=== PATIENT | female | born 1975 | race Caucasian/White ===

== ENCOUNTER 2017-01-23 23:55 | Inpatient (IN) | payer OTHER ==
[2017-01-24] MEDS ORDERED: DEXTROSE 5%-LACTATED RINGERS 500 ML IV SCH (01:00)
[2017-01-24 01:59] LABS: BASOPHIL 0.7 % (0-2.0); EOSINOPHIL 3.1 % (0-4.5); MCHC 33.4 g/dl (32.0-36.0); MEAN CELL VOLUME 83.6 fl (80-96); MEAN PLT VOLUME 9.5 fl (7.5-11.1); NEUTROPHILS 58.4 % (42.8-82.8); PLATELET COUNT 317 K/MM3 (134-434); RDW 14.3 % (11.6-15.6); WHITE BLOOD COUNT 7.6 K/mm3 (4.0-10.0)
[2017-01-24] MEDS: DEXTROSE 5%-LACTATED RINGERS 1,000 ML IV SCH (02:00)
[2017-01-24 02:13] LABS: INR 1.03 (0.82-1.09); PROTHROMBIN TIME (PATIENT) 11.3 SEC (9.98-11.88)
[2017-01-24 02:15] LABS: ACTIVATED PTT 25.6 SECONDS (26.9-34.4)
[2017-01-24 02:20] LABS: ANION GAP 12 (8-16); CALCIUM 8.7 mg/dL (8.5-10.1); CO2 20 mmol/L (21-32); CREATININE 0.4 mg/dL (0.55-1.02); GLUCOSE,RANDOM 80 mg/dL (74-106)
[2017-01-24] MEDS ORDERED: BUTORPHANOL TARTRATE 1 MG/ML VIAL IVPB ONE ×2 (02:30→12:30)
[2017-01-24] MEDS ORDERED: PROMETHAZINE HCL 25 MG/1 ML VIAL IVPB ONE ×2 (02:30→12:30)
[2017-01-24 02:42] VITALS: BMI 32.4
--- NOTE | 2017-01-24 07:06 | HP ---
Past Medical History - Primary Care Physician PCP:: Bakari Carrera - Admission Chief Complaint: 37,4 weeks, rom , previous c/s , request of History of Present Illness: 41 yo f edc by sono 02/10/17 with previous c/s for breech c/o rom since 1130 pm 01/23/17 , clear fluid, irregular contracrion, cx 1 FT , 50 vx -3 mr, nitazine positve, clear fluid , fhr cat 1, contraction q 4 min, risks of discused , aware of all risks , ulternative c/s discussed , declined History Source: Patient Limitations to Obtaining History: No Limitations - Past Medical History ...: 3 ...Para: 1 ...Term: 1 ...: 0 ...Spon : 1 ...Induced : 0 ...Multiple Gestation: 0 ...LMP: 05/06/16 ... Weeks Gestation by Dates: 37.4 ...EDC by Dates: 02/10/17 ...EDC by Sono: 02/10/17 - Past Surgical History Past Surgical History: Yes: Hx Myomectomy: No Hx Transabdominal Cerclage: No - Smoking History Smoking history: Never smoked Have you smoked in the past 12 months: No - Alcohol/Substance Use Hx Alcohol Use: No - Social History Usual Living Arrangement: Yes: With Spouse History of Recent Travel: No Home Medications - Allergies Allergies/Adverse Reactions: Allergies Allergy/AdvReac Type Severity Reaction Status Date / Time No Known Allergies Allergy Verified 01/24/17 01:24 - Home Medications Home Medications: Ambulatory Orders [id number]/Iron Fumarate/FA/Dss [ 19 Tablet] 1 each PO DAILY 01/24/17 Review of Systems - Review of Systems Constitutional: reports: No Symptoms HENT: reports: No Symptoms Neck: reports: No Symptoms Cardiovascular: reports: No Symptoms Respiratory: reports: No Symptoms Gastrointestinal: reports: No Symptoms Genitourinary: reports: No Symptoms Breasts: reports: No Symptoms Reported Musculoskeletal: reports: No Symptoms Integumentary: reports: No Symptoms Neurological: reports: No Symptoms Endocrine: reports: No Symptoms Hematology/Lymphatic: reports: No Symptoms Physical Exam - Maternity Vital Signs: Vital Signs Temperature 98.1 F 01/24/17 06:00 Pulse Rate 65 01/24/17 06:00 Respiratory Rate 20 01/24/17 06:00 Blood Pressure 105/53 01/24/17 06:00 O2 Sat by Pulse Oximetry (%) Constitutional: Yes: Well Nourished, No Distress, Calm Eyes: Yes: WNL, Conjunctiva Clear, EOM Intact HENT: Yes: WNL, Atraumatic, Normocephalic Neck: Yes: WNL, Supple, Trachea Midline Cardiovascular: Yes: WNL, Regular Rate and Rhythm Breast(s): Yes: WNL - Abdominal Exam/OB Fundal Height: 40 Number of Fetuses: Single Presentation: Vertex Contractions: Yes Regularity: Irregular Intensity: Mod/Strong Monitor Mode: External Heart Rate Location: [facility] Category: I Accelerations: Uniform Decelerations: None - Vaginal Exam/OB Vaginal Bleediing: No Speculum Exam: No Dilatation (cm): i cm Effacement (%): 50 Amniotic Membrane Status: Ruptured (gross lekage of clear fluid) Nitrazine Test: Positive Amniotic Fluid: Yes: Clear Presentation: Vertex/Position Station: -3 - Physical Exam Extremities: Yes: WNL Edema: Yes Edema: LLE: Trace, RLE: Trace Deep Tendon Reflex Grade: Normal +2 Psychiatric: Yes: Alert - Labs Lab Results: CBC, BMP 01/24/17 01:00 01/24/17 01:00 Hemorrhage Risk Assessment - Risk Factors Medium Risk Factors: Yes: Prior , uterine surgery,or multiple laparotomies Risk Score: 1 Risk Level: Medium Risk Problem List - Problems (1) with 37 or more completed weeks gestation Code(s): CYF6741 - (2) membrane rupture Code(s): RAH0630 - (3) with 37 weeks completed gestation Code(s): Z3A.37 - 37 WEEKS GESTATION OF (4) Advanced maternal age (AMA) in Code(s): LXO6826 - (5) Previous section complicating , antepartum condition or complication Code(s): O34.219 - MATERNAL CARE FOR UNSP TYPE SCAR FROM PREVIOUS DEL Assessment/Plan requesting , risks discussed, fully awrare of risks of , consent signed plan FHM, observation
[2017-01-24] MEDS ORDERED: CITRIC ACID/SODIUM CITRATE 30 ML UNIT-DOSE CUP PO ONE (12:30)
[2017-01-24] MEDS ORDERED: ELECTROLYTE-148 SOLN 500 ML IV ONE ×2 (12:30→13:00)
[2017-01-24] MEDS ORDERED: ONDANSETRON 4 MG/2 ML VIAL IVPB PRN (16:09)
--- NOTE | 2017-01-24 16:18 | OP ---
Operative Note - Note: Operative Date: 01/24/17 Pre-Operative Diagnosis: Previous / Failed attempt / Multiparity Operation: Repeat Low Transverse / Bilateral Tubal ligation Findings: Baby in ROT position Post-Operative Diagnosis: Same as Pre-op Surgeon: Zuleika Diego Animal Handler: Ranjeet Valencia Anesthesia: Spinal Specimens Removed: Placenta / Portion of the tubes Estimated Blood Loss (mls): 500
[2017-01-24] MEDS ORDERED: TUBERCULIN PPD 5 TU/0.1ML SYRINGE (IN PATIENT USE ONLY) ID ONE (16:45)
[2017-01-24] MEDS ORDERED: METHYLERGONOVINE MALEATE 0.2 MG/1 ML AMP IM PRN (17:22)
[2017-01-24] MEDS: D5W-LR W/ 20 UNITS OXYTOCIN 1,000 ML IV SCH (17:30)
[2017-01-24] MEDS: IBUPROFEN 800 MG/8 ML IJ IVPB PRN (20:55)
[2017-01-25] MEDS: D5W-LR W/ 20 UNITS OXYTOCIN 1,000 ML IV SCH ×2 (01:11→19:05)
[2017-01-25] MEDS: DEXTROSE 5%-LACTATED RINGERS 1,000 ML IV SCH (06:14)
[2017-01-25] MEDS: IBUPROFEN 800 MG/8 ML IJ IVPB PRN (07:22)
[2017-01-25 08:26] LABS: BASOPHIL 0.5 % (0-2.0); MCH 27.9 pg (25.7-33.7); MCHC 33.4 g/dl (32.0-36.0); MEAN CELL VOLUME 83.6 fl (80-96); MEAN PLT VOLUME 8.7 fl (7.5-11.1); NEUTROPHILS 71.8 % (42.8-82.8); PLATELET COUNT 258 K/MM3 (134-434); RDW 14.6 % (11.6-15.6); WHITE BLOOD COUNT 9.4 K/mm3 (4.0-10.0)
--- NOTE | 2017-01-25 08:32 | PN ---
Post Progress Note - Subjective Subjective: 41 yo Para 2 status post repeat , seen and evaluated. She c/o incision pain, otherwise doing well. Post Day: 1 Type of Delivery: Repeat C/S Vital Signs: Vital Signs Temperature 98.9 F 01/25/17 06:00 Pulse Rate 82 01/25/17 06:00 Respiratory Rate 18 01/25/17 06:00 Blood Pressure 112/63 01/25/17 06:00 O2 Sat by Pulse Oximetry (%) 99 01/24/17 21:00 Breast Exam: Yes: Soft Uterus: Yes: Fundus Firm Incision: Yes: Dressing dry and intact Abdomen/GI: Yes: Abdomen soft, Tolerating PO Lochia: Yes: Rubra Lochia, amount: Small Extremities: Yes: Calves non-tender Perineum: Yes: Intact Activity: Other (She's lying in bed) - Labs Labs: CBC WBC 7.6 K/mm3 (4.0-10.0) 01/24/17 01:00 RBC 3.84 M/mm3 (3.60-5.2) 01/24/17 01:00 Hgb 10.7 GM/dL (10.7-15.3) 01/24/17 01:00 Hct 32.1 % (32.4-45.2) L 01/24/17 01:00 MCV 83.6 fl (80-96) 01/24/17 01:00 MCH 28.0 pg (25.7-33.7) 01/24/17 01:00 MCHC 33.4 g/dl (32.0-36.0) 01/24/17 01:00 RDW 14.3 % (11.6-15.6) 01/24/17 01:00 Plt Count 317 K/MM3 (134-434) 01/24/17 01:00 MPV 9.5 fl (7.5-11.1) 01/24/17 01:00 Neutrophils % 58.4 % (42.8-82.8) 01/24/17 01:00 Lymphocytes % 30.3 % (8-40) 01/24/17 01:00 Monocytes % 7.5 % (3.8-10.2) 01/24/17 01:00 Eosinophils % 3.1 % (0-4.5) 01/24/17 01:00 Basophils % 0.7 % (0-2.0) 01/24/17 01:00 Assessment/Plan Status post repeat Ambulation Analgesia as needed Continue Post op care
[2017-01-25] MEDS ORDERED: DIPHTH,PERTUSS(ACELL),TET 0.5 ML DISP.SYRIN IM ONE (11:00)
[2017-01-25] MEDS ORDERED: diphenhydrAMINE HCL 25 MG CAPSULE (FP) PO PRN (11:43)
--- NOTE | 2017-01-25 14:36 | PN ---
Progress Note (short form) - Note Progress Note: Anesthesiology Post-op POD#1 s/p repeat C/S under spinal anesthesia. Pt. feels very well, denies pain, h/a,n/v, she is able to move legs. She only c/o some mild itching in the legs; she has been receving diphenhydramine PRN for this. VSS.
[2017-01-25] MEDS: oxyCODONE HCL 5 MG TABLET PO PRN ×2 (15:56→23:25)
[2017-01-25] MEDS: IBUPROFEN 600 MG TABLET (FP) PO PRN ×2 (15:58→23:24)
[2017-01-25] MEDS: SIMETHICONE 80 MG TAB.CHEW (FP) PO PRN (15:58)
[2017-01-25] MEDS ORDERED: BISACODYL 10 MG SUPP.RECT RC PRN (17:22)
[2017-01-25] MEDS: ACETAMINOPHEN 325 MG TABLET (FP) PO PRN (23:24)
[2017-01-26] MEDS: SIMETHICONE 80 MG TAB.CHEW (FP) PO PRN ×2 (08:12→20:48)
--- NOTE | 2017-01-26 11:10 | PN ---
Post Progress Note - Subjective Subjective: 41 yo status post repeat , seen and evaluated. She's out of bed to chair. Doing well Post Day: 2 Type of Delivery: Repeat C/S Vital Signs: Vital Signs Temperature 98.9 F 01/26/17 07:15 Pulse Rate 75 01/26/17 07:15 Respiratory Rate 20 01/26/17 07:15 Blood Pressure 112/72 01/26/17 07:15 O2 Sat by Pulse Oximetry (%) 99 01/24/17 21:00 Breast Exam: Yes: Soft Uterus: Yes: Fundus Firm Incision: Yes: [place] intact Abdomen/GI: Yes: Abdomen soft, Tolerating PO Lochia: Yes: Rubra Lochia, amount: Small Extremities: Yes: Calves non-tender Perineum: Yes: Intact Activity: Ambulating - Labs Labs: CBC WBC 9.4 K/mm3 (4.0-10.0) 01/25/17 07:45 RBC 3.28 M/mm3 (3.60-5.2) L 01/25/17 07:45 Hgb 9.2 GM/dL (10.7-15.3) L D 01/25/17 07:45 Hct 27.5 % (32.4-45.2) L 01/25/17 07:45 MCV 83.6 fl (80-96) 01/25/17 07:45 MCH 27.9 pg (25.7-33.7) 01/25/17 07:45 MCHC 33.4 g/dl (32.0-36.0) 01/25/17 07:45 RDW 14.6 % (11.6-15.6) 01/25/17 07:45 Plt Count 258 K/MM3 (134-434) 01/25/17 07:45 MPV 8.7 fl (7.5-11.1) 01/25/17 07:45 Neutrophils % 71.8 % (42.8-82.8) D 01/25/17 07:45 Lymphocytes % 17.1 % (8-40) D 01/25/17 07:45 Monocytes % 9.6 % (3.8-10.2) 01/25/17 07:45 Eosinophils % 1.0 % (0-4.5) 01/25/17 07:45 Basophils % 0.5 % (0-2.0) 01/25/17 07:45 Assessment/Plan Status post repeat Ambulation Analgesia as needed Continue Post op care
[2017-01-26] MEDS: IBUPROFEN 600 MG TABLET (FP) PO PRN ×2 (11:14→20:48)
[2017-01-26] MEDS: ACETAMINOPHEN 325 MG TABLET (FP) PO PRN ×2 (11:16→20:48)
--- NOTE | 2017-01-27 06:58 | DS ---
Physical Exam-LICENSE DISTRIBUTOR Vital Signs: Vital Signs Temperature 98.0 F 01/27/17 02:00 Pulse Rate 87 01/26/17 22:00 Respiratory Rate 18 01/26/17 22:00 Blood Pressure 120/65 01/26/17 22:00 O2 Sat by Pulse Oximetry (%) 99 01/24/17 21:00 Constitutional: Yes: Well Nourished Eyes: Yes: Conjunctiva Clear HENT: Yes: Atraumatic Neck: Yes: Supple, Trachea Midline Cardiovascular: Yes: Regular Rate and Rhythm Respiratory: Yes: Regular Gastrointestinal: Yes: Normal Bowel Sounds External Genitalia: Yes: Normal Vaginal Exam: Yes: Normal Cervix: Yes: Normal Uterus: Yes: Firm Wound/Incision: Yes: Clean/Dry, Dressing Dry and Intact Neurological: Yes: Alert, Oriented Psychiatric: Yes: Alert, Oriented Labs: CBC, BMP 01/25/17 07:45 01/24/17 01:00 Delivery - Delivery Type of Anesthesia: Spinal Episiotomy/Laceration: None EBL (cc): 500 Delivery, Single - Stages of Labor Date 1st Stage Initiatied: 01/24/17 Time 1st Stage Initiated: 06:00 Date of Delivery: 01/24/17 Time of Delivery: 16:40 Time Placenta Delivered: 16:41 - Condition of Infant Social Service Director/Baton Twirler Present: Yes Name: Alfredo Pemberton Infant Gender: Male Weight: 5 lb 13 oz Position: Right, OT Total Hours ROM (Hrs/Mins): 17hrs/11mins - 1 Minute Total Score: 9 5 Minutes Total Score: 9 - Feeding Plan Initial Plan: Exclusive throughout hospitalization Discharge Summary Reason For Visit: ADMIT FOR LABOR Current Active Problems Advanced maternal age (AMA) in (Acute) membrane rupture (Acute) with 37 or more completed weeks gestation (Acute) with 37 weeks completed gestation (Acute) Previous section complicating , antepartum condition or complication (Acute) Status post repeat low transverse section (Acute) Procedures: Principal: Repeat Low transverse Hospital Course: Routine Post op care - Instructions Diet, Activity, Other Instructions: Wound care No driving, no lifting x 4 weeks F/U in clinic for cornelio removal Disposition: HOME - Home Medications Comprehensive Discharge Medication List: Ambulatory Orders [id number]/Iron Fumarate/FA/Dss [ 19 Tablet] 1 each PO DAILY 01/24/17
[2017-01-27] MEDS: SIMETHICONE 80 MG TAB.CHEW (FP) PO PRN (07:38)
[2017-01-27] MEDS: IBUPROFEN 600 MG TABLET (FP) PO PRN (07:38)
[2017-01-27] MEDS: ACETAMINOPHEN 325 MG TABLET (FP) PO PRN (07:38)
[2017-01-27 07:59] LABS: BASOPHIL 0.5 % (0-2.0); EOSINOPHIL 3.4 % (0-4.5); MCH 27.9 pg (25.7-33.7); MCHC 33.7 g/dl (32.0-36.0); MEAN CELL VOLUME 82.9 fl (80-96); MEAN PLT VOLUME 7.7 fl (7.5-11.1); NEUTROPHILS 68.8 % (42.8-82.8); PLATELET COUNT 292 K/MM3 (134-434); RDW 14.3 % (11.6-15.6); WHITE BLOOD COUNT 5.7 K/mm3 (4.0-10.0)
[2017-01-27 10:54] VITALS: BP 116/73; PULSE 73; TEMP 99
--- NOTE | 2017-01-31 15:47 | PATH ---
Surgical Pathology Report Patient Name: CHAR ZARAGOZA [facility]. Rec. 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 Specimen(s) Received A: PLACENTA B: RIGHT FALLOPIAN TUBE C: LEFT FALLOPIAN TUBE Clinical History , 37.4 weeks, previous c/section 2009 Repeat c/section with BTL Final Diagnosis A. PLACENTA, DELIVERY: FOCALLY DISRUPTED THIRD TRIMESTER PLACENTA WITH MODERATE PREVILLOUS, PERIVILLOUS, AND PRECHORIONIC FIBRIN DEPOSITION, FOCAL CALCIFICATIONS, THREE VESSEL UMBILICAL CORD, AND PLACENTAL MEMBRANES WITH FOCAL CIRCUMMARGINATE INSERTION. B. PORTION OF FALLOPIAN TUBE, RIGHT, LIGATION: SEGMENT OF FALLOPIAN TUBE WITH COMPLETE CROSS SECTION C. PORTION OF FALLOPIAN TUBE, LEFT, LIGATION: SEGMENTS OF FALLOPIAN TUBE WITH COMPLETE CROSS SECTION. Electronically Signed Bowen Mendez M.D. Gross Description A. The specimen is received fresh, labeled "placenta" and is a 436 gram, 15.5 x 12.0 x 3.3 cm placenta with attached membranes and umbilical cord. The attached membranes are aviles, translucent with focal opacities and display focal circumarginate insertion. The umbilical cord measures 24 cm in length and averages 1.5 cm in diameter. The cord inserts eccentrically, 0.5 cm to the nearest margin. No true knots or strictures are identified. Cut surface of the umbilical cord reveals 3 vessels. The surface is sumner-blue with fibrin deposition and appropriate caliber vessels. The maternal surface is red-brown with focal defects. Sectioning reveals red-brown, spongy parenchyma. No focal lesions are identified. Airport Ramp Attendant sections are submitted in three cassettes as follows: 1- membrane rolls and umbilical cord; 2-3- full thickness sections of placenta. B. Received in formalin labeled "portion of right fallopian tube" is a 1.2 cm in length portion of fallopian tube. No fimbria are present. The outer surface is aviles-bal and smooth. Sectioning reveals an unremarkable lumen. Airport Ramp Attendant sections are submitted in one cassette. C. Received in formalin labeled "portion of left fallopian tube" is a 1.2 cm in length portion of fallopian tube. No fimbria are present. The outer surface is aviles-bal and smooth. Sectioning reveals an unremarkable lumen. Airport Ramp Attendant sections are submitted in one cassette. 01/30/2017 [facility]01/30/2017
--- NOTE | 2017-02-17 15:20 | OP ---
DATE OF OPERATION: 01/23/2017 PREOPERATIVE DIAGNOSIS: Multiparity, failed vaginal after section attempt at 37 weeks. POSTOPERATIVE DIAGNOSIS: Multiparity, failed vaginal after section attempt at 37 weeks. PROCEDURE: Repeat low transverse section and bilateral tubal ligation. SURGEON: Zuleika Diego MD HEALTH PROFESSIONAL: DANNIELLE Dueñas ANESTHESIA: Spinal. ESTIMATED BLOOD LOSS: 600 mL. PROCEDURE: The patient is taken to the operating room where spinal anesthesia was administered. Patient was then placed in lithotomy position. Patient was then prepped and draped in the sterile fashion. A Pfannenstiel skin incision was made and carried down through the underlying layer of fascia. The fascia was then incised in the midline and extended laterally. The superior aspect of the fascial incision was then grasped with Awa clamp, elevated, and the rectus muscles were dissected off bluntly. Attention was turned to the inferior aspect of the fascial incision, which in a similar fashion, was then grasped with a Awa clamp, elevated, and the rectus muscle was dissected off bluntly. The rectus muscle was then in the midline and the peritoneum identified and entered sharply with Metzenbaum scissors. The peritoneum was then grasped with a pickup and entered sharply with Metzenbaum scissors. This incision was extended superiorly and inferiorly with good visualization of the bladder. The vesicouterine peritoneum was then grasped with a pickup and entered sharply with Metzenbaum scissors. This incision was extended laterally and a bladder flap was created digitally. The bladder blade was then reinserted. The lower uterine segment was then incised using a 10-blade. This incision was extended laterally and the head was delivered atraumatically. Nose and mouth were suctioned and the cord clamped and cut. The was handed to the awaiting dermatology specialist. The placenta was then removed manually. The uterus was exteriorized and cleared of all clots and debris. The uterine incision was repaired using 0 Biosyn in a running locked fashion. The second layer of the same suture was used as a means to provide excellent hemostasis. The pelvis was then completely irrigated. The uterus was returned to the abdomen. Attention was then turned to the tube where a 3-cm segment of the tube was then clamped with a Aviva and tied using plain gut. Using Schaefer scissors, a portion of the tube on the right side was cut. The same procedure was performed on the left side. The peritoneum was closed and the fascia was reapproximated using 0 Vicryl in a running fashion. The subcutaneous tissue was closed in a subcuticular fashion and the skin was closed with cornelio. Patient tolerated the procedure well. Patient was taken to the PACU in stable condition. PATHOLOGY: Placenta. Daniel PRUITT/[id number]
== END 2017-01-27 12:00 | disposition home or self-care (01) | DRG 540 ==
LOC: JLDR 23:55 → J3W 01-24 20:03
PROVIDERS: ADMIT Obstetrics & Gynecology; ATTEND Obstetrics & Gynecology
PROC: 10D00Z1 Extraction of Products of Conception, Low, Open Approach (ICD-10-PCS; principal; 2017-01-23)
PROC: 0UL70ZZ Occlusion of Bilateral Fallopian Tubes, Open Approach (ICD-10-PCS; 2017-01-23)
PROC: 4A1HXCZ Monitoring of Products of Conception, Cardiac Rate, External Approach (ICD-10-PCS; 2017-01-23)
DX: O34.211 Maternal care for low transverse scar from previous cesarean delivery (principal); Z3A.37 37 weeks gestation of pregnancy; Z37.0 Single live birth; Z30.2 Encounter for sterilization
CPT/HCPCS: 36415; 80048; 85025; 85610; 85730; 86593; 86850; 86900; 86901; 88302-TC; 88307-TC; 90715

== ENCOUNTER 2017-02-02 13:41 | Emergency (ER) | payer OTHER ==
[2017-02-02 13:49] VITALS: BP 137/81; PULSE 64; BMI 32.4
--- NOTE | 2017-02-02 14:37 | PDOC ---
Suture Removal/Wound Check HPI - History of Present Illness Chief Complaint: Revisit,Wound Recheck Stated Complaint: POST-SURG WOUND Time Seen by Provider: 02/02/17 14:26 History Source: Yes: Patient Exam Limitations: Yes: No Limitations Treated at: [facility] ED - Previous ED Treatment Type of procedure performed on last visit: Yes: Other (csection/ wound) - Onset of Previous Treatment Select one - (for the option above): Days (7) Comment:: 02/02/17 15:10 came to emergency department for evaluation and wound care of wound. 7 days with staple removal a few days ago with dehiscence to the right lateral aspect of wound. Was packed with gauze, and instructed to come to ER for wound care. Patient denies fever, excessive pain, and no excessive drainage. Past History - Travel Traveled outside of the country in the last 30 days: No Close contact w/someone who was outside of country & ill: No - Past Medical History Allergies/Adverse Reactions: Allergies No Known Allergies Allergy (Verified 02/02/17 13:49) Home Medications: Ambulatory Orders NK [No Known Home Medication] 02/02/17 General: Yes: no pertinent history Surgical History: Yes: - Social History Smoking Status: Never smoked Suture Removal/Wound Check PE - Physical Exam Laceration/Wound Check Symptoms: reports: None Current Severity Level: None Maximum Severity Level: None Pain Radiation: None *Review of Systems - Review of Systems Able to Perform ROS?: Yes Constitutional: Yes: See HPI. No: Symptoms Reported, Fever, Loss of Appetite, Malaise HEENTM: Yes: See HPI. No: Symptoms Reported Integumentary: Yes: Symptoms Reported, See HPI, Other (dehiscence of wound, without pain, swelling, or purulent drainage) All Other Systems: Reviewed and Negative Medical Decision Making - Medical Decision Making 02/02/17 17:12 Postop section with wound dehiscence. Packing removed/wound cleaned and repacked with small amount of iodoform gauze. Patient tolerated well and wound appears to be granulating appropriately. *DC/Admit/Observation/Transfer Diagnosis at time of Disposition: Visit for wound check - Discharge Dispostion Disposition: HOME Condition at time of disposition: Stable Admit: No - Referrals Referrals: Rajni Glover MD [Primary Care Provider] - - Patient Instructions Printed Discharge Instructions: DI for Wound Dehiscence Additional Instructions: Rest, keep area elevated. Avoid strenuous activity or exercise until wound is healed May change dressings as needed to keep clean - trying to avoid removal of packing for 2 days. If packing needs to be removed, then in 2 days, while in the shower remove dressing and quickly pull the packing taken out. Allow water from shower to wash area thoroughly for 2-3 minutes, and pat dry upon exit of shower and replace dressing. Change his dressing daily until the wound is completely healed. May use Tylenol or Motrin for mild pain relief Followup with private physician in 2-3 days for wound check Return to emergency Department for worsening swelling, pain, redness, fevers as needed
== END 2017-02-02 14:44 | disposition home or self-care (01) ==
LOC: JERFT 13:41
DX: O90.0 Disruption of cesarean delivery wound (principal)
CPT/HCPCS: 99281-25